=== PATIENT | male | born 1980 | race Two or more races ===

== ENCOUNTER 2019-02-22 19:03 | Emergency (ER) | payer MEDICAID ==
[~2019-02-22] VITALS: Ht 167.6 cm; Wt 85.3 kg
[2019-02-22 19:44] VITALS: BP 136/94
== END 2019-02-23 04:23 | disposition left against medical advice (07) ==
LOC: ER 19:09
DX: R07.89 Other chest pain (principal); Z53.21 Procedure and treatment not carried out due to patient leaving prior to being seen by health care provider
CPT/HCPCS: 93005